=== PATIENT | female | born 1995 | race American Indian/Alaskan Native ===

== ENCOUNTER 2018-07-28 10:58 | Emergency (ER) | payer MEDICAID ==
[2018-07-28 11:09] VITALS: BP 132/74
--- NOTE | 2018-07-28 11:53 | Emergency Department Report ---
ED ENT HPI - General Chief complaint: Nosebleed Stated complaint: NOSE BLEED Time Seen by Provider: 07/28/18 11:42 Source: patient Mode of arrival: Ambulatory Limitations: No Limitations - History of Present Illness Initial comments: This is a 22-year-old female nontoxic, well nourished in appearance, no acute signs of distress presents to the ED with c/o of acute on chronic intermittent epistaxis. Patient currently denies any other epistaxis. Patient today has resolved yesterday. Patient denies any difficulty breathing, shortness of breath, fever, chills, nausea, vomiting, headache or stiff neck. Denies any URI symptoms. Denies any allergies or significant past medical history. MD complaint: epistaxis -: month(s) (1) Location: nose Severity: mild Consistency: intermittent, now resolved Improves with: none Worsens with: none Associated Symptoms: denies: fever, cough, gum swelling, toothache, pain with swallowing, sore throat, tinnitus, hearing loss, discharge from ear, rhinorrhea - Related Data Allergies Allergy/AdvReac Type Severity Reaction Status Date / Time No Known Allergies Allergy Unverified 07/28/18 11:01 ED Dental HPI - General Chief complaint: Nosebleed Stated complaint: NOSE BLEED Time Seen by Provider: 07/28/18 11:42 Source: patient Mode of arrival: Ambulatory Limitations: No Limitations - Related Data Allergies Allergy/AdvReac Type Severity Reaction Status Date / Time No Known Allergies Allergy Unverified 07/28/18 11:01 ED Review of Systems ROS: Stated complaint: NOSE BLEED Other details as noted in HPI Constitutional: denies: chills, fever Eyes: denies: eye pain, eye discharge, vision change ENT: epistaxis. denies: ear pain, throat pain Respiratory: denies: cough, shortness of breath, wheezing Cardiovascular: denies: chest pain, palpitations Endocrine: no symptoms reported Gastrointestinal: denies: abdominal pain, nausea, diarrhea Genitourinary: denies: urgency, dysuria, discharge Musculoskeletal: denies: back pain, joint swelling, arthralgia Skin: denies: rash, lesions Neurological: denies: headache, weakness, paresthesias Psychiatric: denies: anxiety, depression Hematological/Lymphatic: denies: easy bleeding, easy bruising ED Past Medical Hx - Past Medical History Previous Medical History?: Yes Additional medical history: preclampsia - Surgical History Past Surgical History?: No Additional Surgical History: - Social History Smoking Status: Never Smoker Substance Use Type: None ED Physical Exam - General Limitations: No Limitations General appearance: alert, in no apparent distress - Head Head exam: Present: atraumatic, normocephalic - Eye Eye exam: Present: normal appearance - ENT ENT exam: Present: normal exam, mucous membranes moist, other (no nasal polyp or hematoma.) - Neck Neck exam: Present: normal inspection, full ROM. Absent: tenderness, meni ngismus, lymphadenopathy - Extremities Exam Extremities exam: Present: normal inspection, full ROM - Back Exam Back exam: Present: normal inspection, full ROM - Neurological Exam Neurological exam: Present: alert, oriented X3 - Psychiatric Psychiatric exam: Present: normal affect, normal mood - Skin Skin exam: Present: warm, dry, intact, normal color. Absent: rash ED Course Vital Signs 07/28/18 11:07 Temperature 98.2 F Pulse Rate 108 H Respiratory 18 Rate Blood Pressure 132/74 O2 Sat by Pulse 98 Oximetry - Reevaluation(s) Reevaluation #1: 07/28/18 13:01 Patient is speaking in full sentences with no signs of distress noted. ED Medical Decision Making - Medical Decision Making Patient is a 22-year-old female that presents with epistaxis. Patient is febrile and was examined by me. Currently there is no epistaxis. Patient does have a normal airway. Patient was instructed to Follow-up with a primary care/ENT doctor in 3-5 days or if symptoms worsen and continue return to emergency room as soon as possible. At time of discharge, the patient does not seem toxic or ill in appearance. No acute signs of distress noted. Patient agrees to discharge treatment plan of care. No further questions noted by the patient. Critical care attestation.: If time is entered above; I have spent that time in minutes in the direct care of this critically ill patient, excluding procedure time. ED Disposition Clinical Impression: Epistaxis Disposition: DC-01 TO HOME OR SELFCARE Is pt being admited?: No Does the pt Need Aspirin: No Condition: Stable Instructions: Epistaxis (ED) Additional Instructions: Follow-up with a primary care/ENT doctor in 3-5 days or if symptoms worsen and continue return to emergency room as soon as possible. Referrals: BRANDT GUZMAN MD [Primary Care Provider] - 3-5 Days PRIMARY CARE, [Referring] - 3-5 Days ZAK MENJIVAR MD [Staff Physician] - 3-5 Days Forms: Work/School Release Form(ED)
== END 2018-07-28 13:18 | disposition home or self-care (01) ==
LOC: ED 10:58
DX: R04.0 Epistaxis (principal)
CPT/HCPCS: 99282

== ENCOUNTER 2018-11-17 09:11 | Outpatient (CLI) | payer SELFPAY ==
[2018-11-17] MEDS ORDERED: LACTATED RINGERS IV ONE (09:30)
[2018-11-17] MEDS ORDERED: LACTATED RINGERS 500 ML IV ONE (09:35)
[2018-11-17 09:55] LABS: Bilirubin,Urine NEG (Negative); Blood,Urine NEG (Negative); Color,Urine Yellow (Yellow); Mucus,Urine FEW /HPF; Protein,Urine <15 mg/dL mg/dL (Negative); Urobilinogen,Urine < 2.0 mg/dL (<2.0)
[2018-11-17] MEDS ORDERED: BRETHINE SUB-Q ONE (10:45)
[2018-11-17 12:15] VITALS: BP 134/86
== END 2018-11-17 12:30 | disposition home or self-care (01) ==
LOC: TRG 09:11
PROVIDERS: ATTEND Obstetrics & Gynecology
DX: O26.893 Other specified pregnancy related conditions, third trimester (principal); R25.2 Cramp and spasm; O13.3 Gestational [pregnancy-induced] hypertension without significant proteinuria, third trimester; O47.03 False labor before 37 completed weeks of gestation, third trimester; Z3A.34 34 weeks gestation of pregnancy
CPT/HCPCS: 59025; 81001; 96372; J3105; J7120; 96360; 96361

== ENCOUNTER 2019-01-13 23:16 | Emergency (ER) | payer MEDICAID, OTHER ==
[2019-01-13 23:50] VITALS: BP 135/69
[2019-01-14] MEDS ORDERED: HYDROcodone/ACETAMINOPHEN 5-325 MG TAB PO ONE (03:18)
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
== END 2019-01-14 04:10 | disposition home or self-care (01) ==
LOC: ED 23:16
DX: R51 Headache (principal); Z79.899 Other long term (current) drug therapy; V49.49XA Driver injured in collision with other motor vehicles in traffic accident, initial encounter; Y93.89 Activity, other specified; Y92.410 Unspecified street and highway as the place of occurrence of the external cause; Y99.8 Other external cause status